=== PATIENT | male | born 1950 | race Caucasian/White ===

== ENCOUNTER 2022-05-05 20:33 | Emergency (ER) | payer OTHER ==
[~2022-05-05] VITALS: Ht 172.7 cm; Wt 81.7 kg
[~2022-05-05 20:33] MED LIST: Augmentin 875-1 EACH PO; Benicar5 MG PO; ROSU10TA
== END 2022-05-05 23:03 | disposition home or self-care (01) ==
LOC: ER 20:33
DX: H43.12 Vitreous hemorrhage, left eye (principal); H33.22 Serous retinal detachment, left eye; W22.8XXA Striking against or struck by other objects, initial encounter
CPT/HCPCS: 99284-25